=== PATIENT | female | born 1960 | race Asian ===

== ENCOUNTER 2018-05-09 02:48 | Emergency (ER) | payer BC ==
[~2018-05-09] VITALS: Ht 162.6 cm; Wt 70.3 kg
[2018-05-09 02:54] VITALS: Ht 162.6 cm; Wt 70.3 kg
[2018-05-09 03:38] LABS: BASOPHIL % 0.4 % (0-2); PLATELET COUNT 253 x10^3mcL (130-400); RED CELL DISTRIBUTION WIDTH 12.2 % (11.5-14.5)
[2018-05-09 03:52] LABS: CALCIUM 9.4 mg/dL (8.5-10.1); CARBON DIOXIDE 27.1 mmol/L (21-32); CHLORIDE SERUM 105 mmol/L (98-107); CREATININE SERUM 0.8 mg/dL (0.6-1.0); GFR1 > 60 mL/min; GLUCOSE SERUM 124 mg/dL (74-106); POTASSIUM SERUM 3.7 mmol/L (3.5-5.1); SODIUM SERUM 142 mmol/L (136-145)
[2018-05-09 03:57] LABS: ALBUMIN 3.6 g/dL (3.4-5.0); ALKALINE PHOSPHATASE 81 U/L (46-116); ALT/SGPT 47 U/L (14-59); AST/SGOT 45 U/L (15-37); BILIRUBIN TOTAL 0.25 mg/dL (0.20-1.00); TOTAL PROTEIN, SERUM 7.9 g/dL (6.4-8.2)
[2018-05-09 06:25] VITALS: BP 125/91
== END 2018-05-09 06:25 | disposition home or self-care (01) ==
LOC: ED 02:48
PROVIDERS: Emergency Medicine
DX: R09.1 Pleurisy (principal)
CPT/HCPCS: 83880; 87804; J1885; J7030; Q0092